=== PATIENT | male | born 1935 | race Caucasian/White ===

== ENCOUNTER 2020-05-30 11:47 | Emergency (ER) | payer OTHER ==
[~2020-05-30] VITALS: Ht 180.3 cm; Wt 95.5 kg
[2020-05-30 12:13] VITALS: Ht 180.3 cm; Wt 95.5 kg
[2020-05-30 12:50] LABS: BASOPHILS 0.5 % (0-2); EOSINOPHILS 3.4 % (0-7); HEMATOCRIT 47.5 % (42.0-54.0); HEMOGLOBIN 16.6 g/dL (13.5-17.5); IMMATURE GRANULOCYTES 0.1 % (0-5); LYMPHOCYTES 14.8 % (15-50); MCH 33.3 pg (26.0-34.0); MCHC 34.9 g/dL (31.0-37.0); MCV 95.4 fL (80.0-100.0); MONOCYTES 9.6 % (2-11); NEUTROPHILS 71.6 % (40-80); PLATELET COUNT 191 10x3/uL (130-400); RBC 4.98 10x6/uL (4.20-6.10); RDW 13.1 % (11.5-14.5); WBC 8.6 10x3/uL (4.8-10.8)
[2020-05-30 12:59] LABS: ANION GAP 10.6 mmol/L (8-16); CALCIUM 8.7 mg/dL (8.5-10.1); CARBON DIOXIDE 28.3 mmol/L (21.0-32.0); CREATININE - SERUM 1.3 mg/dL (0.6-1.3); POTASSIUM - SERUM 3.9 mmol/L (3.5-5.1)
[2020-05-30 13:05] LABS: ALBUMIN 3.6 g/dL (3.4-5.0); BILIRUBIN - TOTAL 1.05 mg/dL (0.2-1.3); MAGNESIUM - SERUM 1.9 mg/dL (1.8-2.4); PROTEIN - SERUM 7.5 g/dL (6.4-8.2)
[2020-05-30 13:29] LABS: BILIRUBIN NEGATIVE (NEGATIVE); GLUCOSE NEGATIVE (NEGATIVE); KETONE NEGATIVE (NEGATIVE); NITRITE NEGATIVE (NEGATIVE); UROBILINOGEN NORMAL (NORMAL)
[2020-05-30 13:32] LABS: BACTERIA FEW /hpf (NEGATIVE); RED CELLS - URINE 0-5 /hpf (0-5); WHITE CELLS - URINE 0-5 /hpf (NEGATIVE)
[2020-05-30 13:44] LABS: LIPASE 87 U/L (73-393); TROPONIN-I < 0.017 ng/mL (0.000-0.060)
[2020-05-30] MEDS ORDERED: ZPAK PO (15:57)
[2020-05-30] MEDS ORDERED: HYDROCODON-ACE1 EAC7 PO (15:58)
[2020-05-30 16:28] VITALS: BP 160/68
== END 2020-05-30 16:30 | disposition home or self-care (01) ==
LOC: D.ER 11:47
PROVIDERS: Family Medicine
DX: J18.9 Pneumonia, unspecified organism (principal); R07.81 Pleurodynia; I10 Essential (primary) hypertension; R07.89 Other chest pain; R10.10 Upper abdominal pain, unspecified